=== PATIENT | female | born 1995 | race Caucasian/White ===

== ENCOUNTER 2017-06-24 01:38 | Emergency (ER) | payer MEDICAID ==
[~2017-06-24] VITALS: Ht 152.4 cm; Wt 72.2 kg
[~2017-06-24 01:38] MED LIST: DOXY100T20 PO; HYDR-3720 PO
[2017-06-24 01:48] VITALS: Ht 152.4 cm; Wt 72.2 kg
[2017-06-24 03:02] LABS: HEMATOCRIT 40.9 % (37.0-47.0); MEAN CORPUSCULAR VOLUME 87.4 fl (82.0-101.0); MEAN PLATELET VOLUME 10.3 fl (7.4-10.4); MONOCYTE # 0.8 10^3/ul (0.3-0.9); RED BLOOD COUNT 4.68 10^6/ul (4.20-5.40); RED CELL DISTRIBUTION WIDTH 11.6 % (11.5-14.5)
[2017-06-24 03:05] LABS: BASOPHIL # 0.1 10^3/ul (0.0-0.1); BASOPHILS % 0.5 % (0.0-2.0); EOSINOPHILS # 0.2 10^3/ul (0.0-0.5); EOSINOPHILS % 1.8 % (0.0-7.0); HEMOGLOBIN 14.7 g/dl (12.0-16.0); LYMPHOCYTES # 3.1 10^3/ul (0.8-2.9); LYMPHOCYTES % 23.4 % (15.0-51.0); MEAN CORPUSCULAR HEMOGLOBIN 31.4 pg (29.0-33.0); MEAN CORPUSCULAR HGB CONC 35.9 g/dl (32.0-37.0); MONOCYTES % 6.1 % (0.0-11.0); NEUTROPHIL # 8.8 10^3/ul (1.6-7.5); NEUTROPHILS % 67.9 % (39.0-77.0); PLATELET COUNT 305 10^3/UL (140-415)
[2017-06-24 03:17] LABS: ADD UMIC YES; UR ASCORBIC ACID NEGATIVE (NEGATIVE); UR BILIRUBIN (Dip) NEGATIVE (NEGATIVE); UR BLOOD (Dip) 1+ mg/dL (NEGATIVE); UR CLARITY CLEAR (CLEAR); UR COLOR COLORLESS (YELLOW); UR GLUCOSE (Dip) NEGATIVE (NEGATIVE); UR KETONES (Dip) NEGATIVE (NEGATIVE); UR LEUKOCYTE ESTERASE (Dip) NEGATIVE Leu/ul (NEGATIVE); UR NITRITE (Dip) NEGATIVE (NEGATIVE); UR RBC 0 /HPF (0-5); UR SPECIFIC GRAVITY (Dip) 1.003 (1.003-1.030); UR TOTAL PROTEIN (Dip) NEGATIVE (NEGATIVE); UR UROBILINOGEN (Dip) NEGATIVE (NEGATIVE)
--- NOTE | 2017-06-24 03:17 | ERD ---
ER Documentation Chief Complaint Chief Complaint vaginal bleeding x 20 min, wk IUP, mild lower pelvic pain HPI Patient is a 21-year-old female, G3, P0, A2, presents to the ED for concerns of vaginal bleeding. Patient states that her vaginal bleeding started 20 minutes prior to arrival. Patient states she only notices blood when wiping. Patient has not worn any pads since her bleeding started. Patient denies any fevers, chills, nausea, vomiting, diarrhea, dizziness or loss consciousness. Patient reports some mild pelvic pain. Patient also reports dysuria. Patient states her last menstrual period was May 14, 2017. 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 ROS All systems reviewed and are negative except as per history of present illness. Medications Home Meds Active Scripts Acetaminophen* (Tylophen*) 500 Mg Capsule, 1 CAP PO Q6H Y for PAIN AND OR ELEVATED TEMP, #20 CAP Prov:REILLY MUNSON PA-C 06/24/17 Doxycycline Hyclate* (Doxycycline Hyclate*) 100 Mg Tablet., 100 MG PO BID for 5 Days, TAB Prov:LUIS PERALTA DO 01/27/16 Hydrocodone Bit-Acetaminophen* ([place]*) 7.5-325 Tablet, 1 TAB PO Q4H Y for PAIN , #14 TAB Prov:LUIS PERALTA DO 01/27/16 Allergies Allergies: Coded Allergies: No Known Allergy (Unverified , 01/27/16) PMhx/Soc History of Surgery: Yes (left leg) Anesthesia Reaction: No Hx Neurological Disorder: No Hx Respiratory Disorders: No Hx Cardiac Disorders: No Hx Psychiatric Problems: No Hx Miscellaneous Medical Probl: No Hx Alcohol Use: No Hx Substance Use: No Hx Tobacco Use: No Smoking Status: Never smoker Physical Exam Vitals Vital Signs Date Time Temp Pulse Resp B/P Pulse Ox O2 Delivery O2 Flow Rate FiO2 06/24/17 04:42 98.6 85 22 114/71 99 Room Air 06/24/17 01:48 99.1 90 20 123/80 99 Physical Exam GENERAL: Well-developed, well-nourished male. Appears in no acute distress. HEAD: Normocephalic, atraumatic. EYES: Pupils are equally reactive bilaterally. EOMs grossly intact. No conjunctival erythema. ENT: Moist mucous membranes. No uvula deviation. No kissing tonsils. NECK: Supple. No meningismus. Normal range of motion of the neck. LUNG: Clear to auscultation bilaterally. No rhonchi, wheezing, rales or coarse breath sounds. HEART: Regular rate and rhythm. No murmurs, rubs or gallops. ABDOMEN: Soft, and nondistended. Tenderness to palpation in the suprapubic region. Positive bowel sounds in all four quadrants. No rebound tenderness, no guarding. (-) McBurney's point tenderness. No CVA tenderness. EXTREMITIES: Equal pulses bilaterally. No peripheral clubbing, cyanosis or edema. No unilateral leg swelling. NEUROLOGIC: Alert and oriented. Moving all four extremities without any difficulty. Normal speech. Steady gait. SKIN: Normal color. Warm and dry. No rashes or lesions. Result Diagram: 06/24/17 0250 Results 24 hrs Laboratory Tests Test 06/24/17 02:50 White Blood Count 13.010^3/ul Red Blood Count 4.6810^6/ul Hemoglobin 14.7g/dl Hematocrit 40.9% Mean Corpuscular Volume 87.4fl Mean Corpuscular Hemoglobin 31.4pg Mean Corpuscular Hemoglobin Concent 35.9g/dl Red Cell Distribution Width 11.6% Platelet Count 29235^3/UL Mean Platelet Volume 10.3fl Neutrophils % 67.9% Lymphocytes % 23.4% Monocytes % 6.1% Eosinophils % 1.8% Basophils % 0.5% Nucleated Red Blood Cells % 0.0/100WBC Neutrophils # 8.810^3/ul Lymphocytes # 3.110^3/ul Monocytes # 0.810^3/ul Eosinophils # 0.210^3/ul Basophils # 0.110^3/ul Nucleated Red Blood Cells # 0.010^3/ul Urine Color COLORLESS Urine Clarity CLEAR Urine pH 6.0 Urine Specific [place] 1.003 Urine Ketones NEGATIVEmg/dL Urine Nitrite NEGATIVEmg/dL Urine Bilirubin NEGATIVEmg/dL Urine Urobilinogen NEGATIVEmg/dL Urine Leukocyte Esterase NEGATIVELeu/ul Urine Microscopic RBC 0/HPF Urine Microscopic WBC 0/HPF Urine Hemoglobin 1+mg/dL Urine Glucose NEGATIVEmg/dL Urine Total Protein NEGATIVEmg/dl Beta HCG, Quantitative 5959.0mIU/ml Procedures/MDM ED COURSE: The patient was stable throughout ED course. I kept the patient and/or family informed of laboratory and diagnostic imaging results throughout the ED course. DIAGNOSTIC IMAGING: Read by radiologist. DIAGNOSTIC IMAGING REPORT Patient: JODY GARZA : 1995 Age: 21 Sex: F MR #: [id number] DOS: 06/24/17 0209 Ordering MD: REILLY MUNSON PA-C Location: [facility] Room/Bed: PROCEDURE: ULTRASOUND OBSTETRICAL CLINICAL INDICATION: 21-year-old female with vaginal bleeding. TECHNIQUE: Multiple sonographic images of the pelvis were obtained. The images were reviewed on a PACS workstation. COMPARISON: None. FINDINGS: There is a single intrauterine gestation. The mean sac diameter is 0.30 cm. There is no evidence for a yolk sac. This yields an estimated gestational age of 4 weeks and 6 days. The estimated date of delivery is February 25, 2018. There is no evidence for a pole. There is no evidence for free fluid. The right ovary has a normal echotexture and measures 2.9 x 1.4 x 2.2 cm. The left ovary has a normal echotexture and measures 4.3 x 1.9 x 2.2 cm. There is a left ovarian corpus luteum cyst measuring approximately 2.2 x 1.6 cm. There is normal flow to the ovaries bilaterally. No adnexal masses are noted. IMPRESSION: 1. Single early intrauterine gestation of approximately 4 weeks 6 days without evidence for a yolk sac or pole at this time. Clinical correlation and follow-up ultrasound is suggested. 2. Left ovarian corpus luteum cyst. .Cr Paige MD, Date Time Electronically viewed and signed by .Cr Paige MD, on 06/24/2017 03:21 .M/ CC: REILLY MUNSON PA-C PROCEDURES: None. MEDICATIONS GIVEN: None. MEDICAL DECISION MAKING: This is a 21-year-old female, G3, P0, A2, who presents the ED for concerns of vaginal bleeding which started 20 minutes prior to arrival. Patient reports light bleeding, denies wearing any pads. Patient reports bleeding only when wiping. Vital signs were reviewed. Patient was afebrile. Patient was hemodynamically stable. Patient had WBC count of 13. Hemoglobin is noted to be 13.4, hematocrit of 40.9. Patient's blood type was O+. No indication for RhoGam at this time. Patient's beta-hCG level was 5959. Pelvic ultrasound showed 1. Single early intrauterine gestation of approximately 4 weeks 6 days without evidence for a yolk sac or pole at this time. Clinical correlation and follow-up ultrasound is suggested. 2. Left ovarian corpus luteum cyst. Given these findings, the patient's presentation is most consistent with vaginal bleeding during the first trimester. Unable to rule out ectopic or spontaneous at this time. Will need trending a beta-hCG levels as well as a repeat ultrasound given that a yolk sac or pole are not visualized. Patient was advised to return in 2 days for repeat beta-hCG and ultrasound. Low suspicion for molar , subchorionic hematoma, incomplete , placental abruption, aembryonic . PRESCRIPTIONS: Tylenol DISCHARGE: At this time, patient is stable for discharge and outpatient management. I had a conversation at length with the patient about the concerns of vaginal bleeding during the 1st trimester of . Patient and/or family understands that her vaginal bleeding can be a normal finding or a sign of miscarriage. I have instructed the patient to follow-up with her OBGYN/ return here in 2 days for further monitoring including a repeat b-HCG level. I have instructed the patient to promptly return to the ER at any time for any new or worsening symptoms including increased pain, nausea, vomiting, continued bleeding, weakness, syncope or fever. The patient and/or family expressed understanding of and agreement with this plan. All questions were answered. Home care instructions were provided. Disclaimer: Inadvertent spelling and grammatical errors are likely due to EHR/ dictation software use and do not reflect on the overall quality of patient care. Also, please note that the electronic time recorded on this note does not necessarily reflect the actual time of the patient encounter. Departure Diagnosis: Primary Impression: Vaginal bleeding in patient at less than 20 weeks ges... Condition: Stable Patient Instructions: Bleeding During Early Referrals: COMMUNITY CLINICS YOU HAVE RECEIVED A MEDICAL SCREENING EXAM AND THE RESULTS INDICATE THAT YOU DO NOT HAVE A CONDITION THAT REQUIRES URGENT TREATMENT IN THE EMERGENCY DEPARTMENT. FURTHER EVALUATION AND TREATMENT OF YOUR CONDITION CAN WAIT UNTIL YOU ARE SEEN IN YOUR DOCTORS OFFICE WITHIN THE NEXT 1-2 DAYS. IT IS YOUR RESPONSIBILITY TO MAKE AN APPOINTMENT FOR FOLOW-UP CARE. IF YOU HAVE A PRIMARY DOCTOR --you should call your primary doctor and schedule an appointment IF YOU DO NOT HAVE A PRIMARY DOCTOR YOU CAN CALL OUR PHYSICIAN REFERRAL HOTLINE AT IF YOU CAN NOT AFFORD TO SEE A PHYSICIAN YOU CAN CHOSE FROM THE FOLLOWING [facility] CLINICS [facility] [address] [facility]. [facility] [address] [facility]. [facility] [address] [facility]. [facility] [address] [facility]. [facility] [address] [facility], [facility]. [facility] [address] [facility]. [facility] YOU HAVE RECEIVED A MEDICAL SCREENING EXAM AND THE RESULTS INDICATE THAT YOU DO NOT HAVE A CONDITION THAT REQUIRES URGENT TREATMENT IN THE EMERGENCY DEPARTMENT. FURTHER EVALUATION AND TREATMENT OF YOUR CONDITION CAN WAIT UNTIL YOU ARE SEEN IN YOUR DOCTORS OFFICE WITHIN THE NEXT 1-2 DAYS. IT IS YOUR RESPONSIBILITY TO MAKE AN APPOINTMENT FOR FOLOW-UP CARE. IF YOU HAVE A PRIMARY DOCTOR --you should call your primary doctor and schedule and appointment IF YOU DO NOT HAVE A PRIMARY DOCTOR YOU CAN CALL OUR PHYSICIAN REFERRAL HOTLINE AT . IF YOU CAN NOT AFFORD TO SEE A PHYSICIAN YOU CAN CHOSE FROM THE FOLLOWING [facility]: [facility] [address] [place] [address] [facility] [address] [place] [address] [facility] [address] [place] [address] GAMING INVESTIGATOR [place] [address] [facility] [address] [place] [address] OFFICE FAX [place] [address] [place] [address] [address] R[facility]EE [facility] [address] [place] [address] [address] [facility] [address] [place] [address] [address] [facility] [facility] [address] [facility] [place] [address] [facility] [address] [place] [address] [address] [facility] [address] - [address] FLORES TERI [address] [facility] [place] [address] [address] JUAREZ, [place] [address] [facility]. [address], [place] [address] DR DANIELS [facility] [address] [place] [address] Additional Instructions: Call your primary care doctor/ OBGYN TOMORROW for an appointment during the next 1-2 days. See the doctor sooner or return here if your condition worsens before your appointment time. Repeat beta-hCG level and ultrasound advised in 2 days. REILLY MUNSON PA-C Jun 24, 2017 03:17
--- NOTE | 2017-06-24 03:21 | RADRPT ---
PROCEDURE: ULTRASOUND OBSTETRICAL CLINICAL INDICATION: 21-year-old female with vaginal bleeding. TECHNIQUE: Multiple sonographic images of the pelvis were obtained. The images were reviewed on a PACS workstation. COMPARISON: None. FINDINGS: There is a single intrauterine gestation. The mean sac diameter is 0.30 cm. There is no evidence fo r a yolk sac. This yields an estimated gestational age of 4 weeks and 6 days. The estimated date of delivery is February 25, 2018. There is no evidence for a pole. There is no evidence for free flui d. The right ovary has a normal echotexture and measures 2.9 x 1.4 x 2.2 cm. The left ovary has a n ormal echotexture and measures 4.3 x 1.9 x 2.2 cm. There is a left ovarian corpus luteum cyst measur ing approximately 2.2 x 1.6 cm. There is normal flow to the ovaries bilaterally. No adnexal masses are noted. IMPRESSION: 1. Single early intrauterine gestation of approximately 4 weeks 6 days without evidence for a yolk sac or pole at this time. Clinical correlation and follow-up ultrasound is suggested. 2. Left ovarian corpus luteum cyst. .Cr Paige MD, MD Date Time Electronically viewed and signed by .Cr Paige MD, on 06/24/2017 03:21 .Shiva/
[2017-06-24] MEDS ORDERED: ACET500C5 PO (04:32)
[2017-06-24 04:42] VITALS: BP 114/71; PULSE 85; RESP 22; TEMP 98.6
== END 2017-06-24 04:51 | disposition home or self-care (01) ==
LOC: FTE 01:38
DX: O20.9 Hemorrhage in early pregnancy, unspecified (principal); R10.2 Pelvic and perineal pain; Z3A.01 Less than 8 weeks gestation of pregnancy
CPT/HCPCS: 36415; 76801; 76817; 81001; 84702; 85025; 86900; 86901; Z7502

== ENCOUNTER 2017-10-04 17:39 | Outpatient (CLI) | END 2017-10-04 21:09 | disposition home or self-care (01) ==

== ENCOUNTER 2017-10-05 12:18 | Outpatient (CLI) | END 2017-10-05 14:12 | disposition home or self-care (01) ==

== ENCOUNTER 2017-11-30 10:44 | Outpatient (CLI) | END 2017-11-30 14:07 | disposition home or self-care (01) ==

== ENCOUNTER 2018-01-01 17:04 | Outpatient (CLI) | END 2018-01-01 19:28 | disposition home or self-care (01) ==

== ENCOUNTER 2018-02-02 18:07 | Outpatient (CLI) | END 2018-02-02 20:40 | disposition home or self-care (01) ==

== ENCOUNTER 2018-02-25 12:33 | Inpatient (IN) | END 2018-03-01 13:25 | disposition home or self-care (01) | DRG 775 ==